=== PATIENT | male | born 1975 | race African-American/Black ===

== ENCOUNTER 2023-05-17 08:32 | Emergency (ER) | payer BC, SELFPAY ==
[2023-05-17] MEDS ORDERED: Acetaminophen 500 MG TAB ONE (08:53)
[2023-05-17 09:06] LABS: #Eosinphils 0.1 10x3/uL (0.0-0.5); #Monocytes 0.8 10x3/uL (0.0-1.1); #Neutrophils 11.2 10x3/uL (1.5-8.4); %Basophils 0.2 % (0.0-2.0); %Eosinophils 0.4 % (0.0-6.0); %Lymphocytes 9.3 % (18.0-47.0); %Neutrophils 83.5 % (40.0-75.0); Hemoglobin 13.2 g/dL (13.5-17.5); Mean Corpuscular HGB CONC 34.4 g/dL (32.0-36.0); Mean Corpuscular Hemoglobin 30.1 pg (27.0-33.0); Mean Corpuscular Volume 87.7 fl (81.2-95.1); Mean Platelet Volume 9.1 fl (7.4-10.4); Platelet Count 270 10x3/uL (150-450); RBC Distribution Width 11.8 % (11.5-14.5); Red Blood Cell (RBC) Count 4.38 10x6/uL (4.32-5.72); White Blood Cell (WBC) Count 13.4 10x3/uL (3.5-10.5)
[2023-05-17] MEDS ORDERED: Ipratropium/Albuterol 3 ML NEB ONE (09:20)
[2023-05-17 09:26] LABS: ALT (SGPT) 22 U/L (8-55); AST (SGOT) 26 U/L (5-34); Albumin 3.9 g/dL (3.5-5.0); Alkaline Phosphatase 57 U/L (40-110); Anion Gap 17 mmol/L (10-20); BUN (Urea Nitrogen) 12 mg/dL (8.9-20.6); Bilirubin, Total 0.7 mg/dL (0.2-1.2); Calc. Creatinine Clearance 0 mL/min (70-130); Calcium 8.8 mg/dL (7.8-10.44); Carbon Dioxide 23 mmol/L (22-29); Chloride 94 mmol/L (98-107); Estimated GFR 67; Globulin 3.7 g/dL (2.4-3.5); Glucose 116 mg/dL (70-105); Potassium 3.1 mmol/L (3.5-5.1); Protein, Total 7.6 g/dL (6.0-8.3); Sodium 131 mmol/L (136-145)
[2023-05-17] MEDS ORDERED: methylPREDNISolone Sod Succ/PF 125 MG/2 ML VIAL ONE (09:32)
[2023-05-17] MEDS ORDERED: Ketorolac Tromethamine 30 MG/ML VIAL ONE (09:32)
[2023-05-17 09:41] LABS: SARS-CoV-2 NAA Rapid Test Not Detected (NotDetected)
[2023-05-17] MEDS ORDERED: Iopamidol 300 61% 100 ML VIAL FS ONE (10:24)
[2023-05-17] MEDS ORDERED: Potassium Chloride 20 MEQ TAB ONE (10:37)
[2023-05-17] MEDS ORDERED: Azithromycin 500 MG VIAL ONE (11:48)
[2023-05-17] MEDS ORDERED: cefTRIAXone (ROCEPHIN) 1 GM VIAL ONE (11:48)
[2023-05-17 12:28] LABS: Bilirubin Neg (Negative); Blood, Urine Negative (Negative); Glucose, Urine (Dipstick) Normal (Negative); Ketone, Urine 15 mg/dL (Negative); Leukocyte Negative (Negative); Nitrite Negative (Negative); Protein, Urine (Dipstick) 30 mg/dl (Neg-Trace); Urobilinogen Normal mg/dL (Less than 2); pH, Urine 6.5 (5.0-9.0)
[2023-05-17 12:29] LABS: Clarity Clear (Clear)
[2023-05-17 12:41] LABS: CAUTI Indications for Culture Pelvic or flank pain; RBC/HPF None Seen HPF (0-3); WBC/HPF None Seen HPF (0-3)
[2023-05-17 12:42] LABS: Bacteria/HPF Rare-Few HPF (None Seen); Squamous Epithelial None Seen HPF (0-3); Urine Culture Reflex No No
== END 2023-05-17 14:07 | disposition home or self-care (01) ==
LOC: CSHERS 08:32
DX: J18.9 Pneumonia, unspecified organism (principal); E86.0 Dehydration; Z20.822 Contact with and (suspected) exposure to COVID-19; F17.210 Nicotine dependence, cigarettes, uncomplicated
CPT/HCPCS: 71045; 74177; 80053; 81001; 83605; 83735; 84484; 85025; 93005; 94640; 96361; 96365; 96366; 96367; 96375; J0456; J0696; J1885; J2930; J7611; J7620; Q9967